=== PATIENT | male | born 2000 | race Caucasian/White ===

== ENCOUNTER 2024-03-21 08:25 | Outpatient (AMB) | payer BC, SELFPAY ==
--- NOTE | 2024-03-21 08:43 | A.OFFPC_ITS ---
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 Manager Desktop Required: No Allergies No Known Allergies Allergy (Verified 03/21/24 09:03) Medication List - Last Reconciled 03/21/24 by Eve Arzate CNP No Known Home Meds Tobacco use date assessed: 03/21/24 Dental Screening Dental Screen Date: 03/21/24 Did you have a dental visit in the last 12 months?: No Did you have a dental problem in the last 6 months where you did not have access to dental care?: No Was dental information given to patient?: Patient declined HPI HPI Comments History of Present Illness Details New patient Prior PCP:?[place], [place] Last office visit/CPE: About 2 years Acute issue(s): None Not on prescription medication He admits to making healthy dietary changes and sleeping well. He does not exercise routinely PMHx: None SurgHx: None FHx: None SocHx: Nonsmoker. Drinks 4 beers or couple of shots 2 times weekly. 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 1. Little interest or pleasure in doing things: not at all 2. Feeling down, depressed, or hopeless: not at all 3. Trouble falling or staying asleep, or sleeping too much: several days 4. Feeling tired or having little energy: several days 5. Poor appetite or overeating: not at all 6. Feeling bad about yourself - or that you are a failure or have let yourself or your family down: not at all 7. Trouble concentrating on things, such as reading the newspaper or watching television: not at all 8. Moving or speaking so slowly that other people could have noticed. Or the opposite - being so fidgety or restless that you have been moving around a lot more than usual: not at all 9. Thoughts that you would be better off or of hurting yourself in some way: not at all Total score: 2 Depression Screening Interpretation: Negative Depression Screening Done: Yes 92122 - PHQ-9 Billing: Yes Source: Developed by Drs. Ed Singh, Bebe Denny, Neri Mcginnis and colleagues, with an educational jemima from [employer]. Thrive Questionnaire Date Thrive assessed: 03/21/24 I am a: Patient What is your living situation today?: I have a steady place to live Within the past 12 months, did the food you bought not last and you didn't have the money to get more?: Never true Within the past 12 months, did you worry whether your food would run out before you got money to buy more?: Never true Do you have trouble paying for medicines?: No Do you have trouble getting transportation to medical appointments?: No Do you have trouble paying your heating and electricity bill?: No Do you have trouble taking care of your child, family member or friend?: No Do you have trouble with day-to-day activities such as bathing, preparing meals, shopping, managing finances, etc.?: No Are you currently unemployed and looking for a job?: No Are you interested in more education?: Yes Please select the resources that you would like help with: Education Currently or been in a relationship where the following occur: No concerns reported THRIVE Score: 0 AUDIT C Alcohol Use Questionnaire (AUDIT-C) 1. How often do you have a drink containing alcohol?: 2-3 times a week 2. How many drinks containing alcohol do you have on a typical day when you are drinking?: 3 or 4 3. How often do you have six or more drinks on one occasion?: Weekly Total Score: 7 Score Reviewed/Action Taken: Yes CLARE-7 AMB Questionnaire CLARE-7 Date CLARE - 7 assessed: 03/21/24 Feeling nervous, anxious, or on edge: 0 = Not at all Not being able to stop or control worryin = Not at all Worrying too much about different things: 0 = Not at all Trouble relaxin = Not at all Being so restless that it is hard to sit still: 0 = Not at all Becoming easily annoyed or irritable: 0 = Not at all Feeling afraid as if something awful might happen: 0 = Not at all Total CLARE-7 score (0-4 normal; 5-9 mild; 10-14 moderate; 15-21 severe): 0 Source: Developed by Drs. Ed Singh, Bebe Denny, Neri Mcginnis and colleagues, with an educational jemima from [employer]. CLARE-7 Assessment Billing CLARE-7 Assessment Tool: CLARE-7 Assessment 13424 Review of Systems Const Details: Denies chills, Denies fatigue, Denies fever(s), Denies headache(s) and Denies weakness HEENT Denies change in vision, Denies dizziness, Denies headache(s), Denies hearing loss, Denies nasal congestion, Denies sinus pain, Denies sinus pressure and Denies sore throat Card Denies chest pain, Denies lightheadedness, Denies dyspnea and Denies other (palpitations) Resp Denies cough, Denies dyspnea and Denies wheezing GI Denies abdominal pain, Denies melena, Denies hematochezia, Denies change in bowel habits, Denies dyspepsia and Denies nausea Denies hematuria and Denies dysuria Musc Denies abnormal gait, Denies myalgias, Denies arthralgias, Denies numbness and Denies tingling Skin/Breast Denies rash, Denies unusual bruising and Denies wounds Neuro Denies abnormal gait, Denies dizziness, Denies headache(s), Denies memory loss, Denies numbness, Denies Sensory deficit (Neuro), Denies tingling and Denies weakness Psych Denies anxiety, Denies depression and Denies memory loss Endo Denies cold intolerance, Denies fatigue, Denies heat intolerance, Denies polydipsia and Denies polyuria Willis/Lymph Denies easy bleeding and Denies easy bruising Aller/Immun Denies wheezing Physical exam (Primary Care) Vital Signs: Last Vital Signs Temp 98.3 F 03/21/24 08:50 Pulse 72 03/21/24 08:50 Resp 16 03/21/24 08:50 BP 130/74 03/21/24 08:50 Pulse Ox 98 03/21/24 08:50 Oxygen Delivery Method Room Air 03/21/24 08:50 BMI result Body Mass Index 35.9 Tobacco/Smoking Status: Tobacco use Status Tobacco use date assessed 03/21/24 03/21/24 08:49 Patient Tobacco Use Status Never used Tobacco 03/21/24 08:49 e-Cigarette/Vaping Use Never Used 03/21/24 08:49 PHQ-9: PHQ-9 Score PHQ-9: Total score 2 03/21/24 09:29 Depression Screening Interpretation: Negative Thrive Assessment: Date of Thrive Assessment Date Thrive assessed 03/21/24 03/21/24 08:54 Currently or been in a relationship where the following occur: No concerns reported Const Other: General: no acute distress, well developed, alert and awake Nutritional Appearance: well nourished Orientation/consciousness: patient oriented x3 HENMT Head: Yes normocephalic and Yes atraumatic Ears: hearing grossly normal bilaterally and TM's normal bilaterally General nose exam: Normal external nose present and Normal nares present Mouth: Normal oral and palatal mucosa present and moist mucous membranes Teeth and gingiva: dentition normal Throat: Yes oropharynx normal Eyes Pupils: Equal, round and reactive pupils present and Pupil accommodation reflex normal EOM: EOMs intact bilaterally Neck Neck: Yes normal visual inspection, Yes no lymphadenopathy and Yes trachea midline Thyroid: Thyroid normal Carotids: no bruits Lymphatic: no lymphadenopathy noted Chest Chest palpation & inspection: normal inspection of the chest Resp Effort & Inspection: normal respiratory effort Auscultation: clear to auscultation bilaterally Cardio Rate: regular rate Rhythm: regular rhythm Heart sounds: S1 normal heart sound present, S2 normal heart sound present, no gallops, no murmurs and no rubs Bruits: no abdominal aortic bruits and no carotid bruits GI Palpation (GI): No Abdominal aortic bruit present, Soft to palpation, nontender, No hepatosplenomegaly present and No Rebound tenderness present Auscultation: normal bowel sounds General: Yes no CVA tenderness Back/Spine/Pelvis Back: no CVA tenderness Cervical Spine: cervical ROM normal and No Cervical spine tenderness Thoracic/Lumbar Spine: thoraco-lumbar ROM normal, No pain with thoraco-lumbar ROM, No thoracic spinal tenderness and No lumbar spinal tenderness Skin General: warm and dry. Normal skin color. Normal skin turgor Lesions: no lesions Rashes: no rashes Trauma: no lacerations or abrasions Wounds: no wounds Nails: normal Neuro General: patient oriented x3, gait normal and CN's II-XI intact bilaterally Cranial nerves: Yes Equal, round and reactive pupils present Cognition (Neuro): normal cognition Gait exam (Neuro): Normal gait present Motor exam (neuro): 5/5 motor strength present throughout Sensory Exam: No Sensory deficit (Neuro) Deep tendon reflexes (DTR's): Right patellar reflex intensity grade: 2+ and Left patellar reflex intensity grade: 2+ Extrem General: Yes normal to inspection, No edema and No calf tenderness Psych Appearance: grossly normal Affect: normal affect Attitude: cooperative Thought process: Normal thought process present Immunizations Boostrix Tdap 2.5 Lf unit-8 mcg-5 Lf/0.5 mL intramuscular syringe Performing Provider: Eve Arzate CNP Performing Location: [facility] Administered by: Iris Brown RN on 03/21/24 09:29 Dose Route Admin Location Dispensed Lot Number Expiration Date NDC Medical Record Specialist 0.5 mL IM Left Deltoid 0.5 mL [id number] 04/13/26 [id number] Disconnect VIS Given Date VIS Provided VIS Publication Date 03/21/24 Single Vaccine 21 Eligibility Eligibility Date Funding Source Not [facility] Eligible 03/21/24 Private Assessment and Plan Assessment & Plan (1) Normal physical examination, routine: Code(s): Z00.00 - Encounter for general adult medical examination without abnormal findings Plan: No significant physical restrictions or limitations noted Continue current treatment regimen Healthy diet and routine exercise encouraged Encouraged to establish with a dentist for routine dental care Advised to limit alcohol consumption 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 Advised to get lab work done and follow-up for telehealth visit in 2-3 weeks for labs review Return with symptoms or concerns Verbalized understanding and agreed with the treatment plan (2) Obesity (BMI 30-39.9): Code(s): E66.9 - Obesity, unspecified Plan: He currently weighs 250 lb, BMI is 35.9 He admits to making healthy dietary changes but has not been exercising routinely Declines with management with dietitian referral at this time Healthy diet and routine exercise encouraged He may inform his PCP as needed for dietitian or weight management referral Verbalized understanding and agreed with the plan (3) Eye exam, routine: Code(s): Z01.00 - Encounter for examination of eyes and vision without abnormal findings Plan: His last eye exam was several years ago Referred to Ophthalmology for routine eye exam (4) Vaccine for tetanus toxoid: Code(s): Z23 - Encounter for immunization Plan: His last tetanus vaccine was in 2013 Tdap vaccine administered administered today by our nurse (5) Encounter for counseling regarding immunization: Code(s): Z71.85 - Encounter for immunization safety counseling Plan: Hep B, MMR, and varicella titers ordered as requested for school (6) Laboratory tests ordered as part of a complete physical exam (CPE): Code(s): Z00. - Encounter for general adult medical examination without abnormal findings Plan: Fasting labs ordered as part of a complete physical exam. Advised to fast for at least 10 hours before getting labs drawn. May drink water Verbalized understanding and agreed with treatment plan. Orders: Orders TDaP Immunization Today Z23 - Encounter for immunization TSH reflex Free T4 Today Z00. - Encounter for general adult medical examination without abnormal findings Lipid Panel Today Z00. - Encounter for general adult medical examination without abnormal findings Hepatitis A,B,C Profile Today Z71.85 - Encounter for immunization safety counseling MMR IgG Measles Mumps Rubella Today Z71.85 - Encounter for immunization safety counseling Complete Blood Count Auto Diff Today Z00.00 - Encounter for general adult medical examination without abnormal findings Comprehensive [place]. Panel Fast Today Z00.00 - Encounter for general adult medical examination without abnormal findings UA CC w/rflx Micro + Cult Today Z00.00 - Encounter for general adult medical examination without abnormal findings Varicella IgG Antibody Today Z71.85 - Encounter for immunization safety counseling Referrals Ophthalmology Referral Z01. - Encounter for examination of eyes and vision without abnormal findings Coding Level of Care Code New Pt Prev Care 18-39yr(99952 Diagnoses Normal physical examination, routine Z00. Obesity (BMI 30-39.9) E66.9 Eye exam, routine Z01. Vaccine for tetanus toxoid Z23 Encounter for counseling regarding immunization Z71.85 Laboratory tests ordered as part of a complete physical exam (CPE) Z00.00 Additional Codes CLARE-7 Assessment Billing - CLARE-7 Assessment Tool: CLARE-7 Assessment 68284 ([id number])
[2024-03-21 08:50] VITALS: BP 130/74; PULSE 72; RESP 16; TEMP 36.8; O2SAT 98; BMI 35.9
== END 2024-03-21 09:27 | disposition home or self-care (01) ==
PROVIDERS: Visit Provider Nurse Practitioner Family
DX: Z00.00 Encounter for general adult medical examination without abnormal findings (principal); E66.9 Obesity, unspecified; Z23 Encounter for immunization; Z71.85 Encounter for immunization safety counseling

== ENCOUNTER → 2024-03-21 08:25 | Outpatient (BNVA) | payer BC, SELFPAY | PROVIDERS: Visit Provider Nurse Practitioner Family | DX: Z00.00 Encounter for general adult medical examination without abnormal findings (principal); Z01.00 Encounter for examination of eyes and vision without abnormal findings; E66.9 Obesity, unspecified; Z68.35 Body mass index [BMI] 35.0-35.9, adult; Z23 Encounter for immunization; Z71.85 Encounter for immunization safety counseling | CPT/HCPCS: 90471; 90715; 96127 ==

== ENCOUNTER 2024-03-21 09:47 | Outpatient (REF) | payer BC, SELFPAY ==
[2024-03-21 11:36] LABS: Appearance Urine Clear; Color Urine Yellow; Glucose Urine UA Negative (Negative); Leukocyte Esterase Urine Negative (Negative); Nitrite Urine Negative (Negative); PH 6.5 (5.0-9.0); Urine Blood Negative (Negative); Urine Ketones Negative (Negative); Urine Protein Negative (Neg-Trace)
[2024-03-21 11:44] LABS: MANUAL DIFF FLAG NO
[2024-03-21 11:52] LABS: Basophils Absolute Auto 0.1 X10*3/uL (0.0-0.2); Basophils Percent Auto 0.9 % (0-2); Eosinophils Absolute Auto 0.1 X10*3/uL (0.0-0.4); Eosinophils Percent Auto 2.2 % (0-4); Hematocrit 41.3 % (42.0-52.0); Hemoglobin 14.2 g/dl (14.0-18.0); Imm Gran Abs Auto 0.03 X10*3/uL (0.00-0.03); Imm Gran Pct Auto 0.5 % (0.0-0.4); Lymphocytes Absolute Auto 1.3 X10*3/uL (1.2-4.9); Mean Corpuscular HGB Conc 34.4 g/dl (31.0-36.0); Mean Corpuscular Hemoglobin 27.9 pg (27.0-33.0); Mean Corpuscular Volume 81.1 fL (80.0-98.0); Mean Platelet Volume 9.9 fL (9.4-12.4); Monocytes Absolute Auto 0.5 X10*3/uL (0.1-1.2); Monocytes Percent Auto 7.4 % (2-11); Neutrophils Absolute Auto 4.5 x10*3/uL (2.0-8.3); Platelet Count 210 X10*3/uL (160-400); Red Blood Count 5.09 X10*6/uL (4.60-5.80); Red Cell Distribution Width 12.5 % (11.0-16.0); White Blood Count 6.5 X10*3/uL (4.8-10.8)
[2024-03-21 12:31] LABS: Alanine Aminotransferase 27 U/L (0-40); Albumin Level 4.4 g/dL (3.5-5.0); Alkaline Phosphatase 77 U/L (39-117); Anion Gap 10 (12-20); Aspartate Amino Transferase 18 U/L (5-37); Bilirubin Total 0.6 mg/dL (0.0-1.0); Blood Urea Nitrogen 13 mg/dL (9-16); Calcium 10.1 mg/dL (8.4-10.2); Carbon Dioxide 28 mmol/L (22-29); Chloride 104 mmol/L (96-108); Cholesterol 180 mg/dL (<200); Estimated Glomerular Filt Rate > 60; Glucose Fasting 96 mg/dL (60-99); HDL Cholesterol 40 mg/dL (>40); LDL Cholesterol Calculated 114 mg/dL (<100); Potassium 4.2 mmol/L (3.3-5.1); Sodium 138 mmol/L (135-145); Total Protein 7.4 g/dL (6.5-8.0); Triglycerides 132 mg/dL (<150)
[2024-03-21 13:15] LABS: HBS Num1 0.67 mIU/mL (0-7.99); HBc Num1 0.33 S/CO (0.00-0.79); HBsAGNum1 0.31 S/CO (0.00-0.99); Hepatitis A Antibody IgM 0.14 Index (0-0.79); Hepatitis B Core Antibody Nonreactive (Nonreactive); Hepatitis B Surface Antigen Negative (Negative); ~HepC Num1 0.19 S/CO (0.00-0.79); ~Hepatitis A Antibody IgM Nonreactive (Nonreactive); ~Hepatitis B Surface Antibody NONREACTIVE (Nonreactive); ~Hepatitis C Antibody Nonreactive (Nonreactive)
[2024-03-22 22:23] LABS: Varicella IgG Antibody 1.02 S/CO
[2024-03-22 23:03] LABS: Rubella IgG Antibody 3.76 Index
== END 2024-03-21 09:48 | disposition home or self-care (01) ==
LOC: HO.WFDLDS 09:47
PROVIDERS: Visit Provider Nurse Practitioner Family
DX: Z00.00 Encounter for general adult medical examination without abnormal findings (principal); Z71.85 Encounter for immunization safety counseling
CPT/HCPCS: 36415; 80053; 80061; 81003; 84443; 85025; 86704; 86706; 86709; 86735; 86762; 86765; 86787; 86803; 87340

== ENCOUNTER 2024-03-30 13:59 | Outpatient (AMB) | payer BC, SELFPAY ==
--- NOTE | 2024-03-30 14:27 | AM.OFFVISNUR ---
Intake Visit Reasons: HEP B Allergies No Known Allergies Allergy (Verified 03/21/24 09:03) Assessment & Plan Assessment & Plan Orders: Orders Hepatitis B Adult Immunization Today Z23 - Encounter for immunization Medications: New Engerix-B (PF) (hepatitis B virus vacc.rec(PF)) 1 mL IM ONCE 1 mL 0RF NS Z23 - Encounter for immunization
== END 2024-03-30 14:36 | disposition home or self-care (01) ==
PROVIDERS: Visit Provider Nurse Practitioner Family
DX: Z23 Encounter for immunization (principal)

== ENCOUNTER → 2024-03-30 13:59 | Outpatient (BNVA) | payer BC, SELFPAY | PROVIDERS: Visit Provider Nurse Practitioner Family | DX: Z23 Encounter for immunization (principal) | CPT/HCPCS: 90471; 90746 ==

== ENCOUNTER → 2024-04-11 14:47 | Outpatient (BNVA) | payer BC, SELFPAY | PROVIDERS: Visit Provider Nurse Practitioner Family ==

== ENCOUNTER 2024-04-29 12:22 | Outpatient (AMB) | payer BC, SELFPAY ==
--- NOTE | 2024-04-29 12:38 | AM.OFFVISNUR ---
Intake Visit Reasons: HEP B second dose Allergies No Known Allergies Allergy (Verified 04/11/24 14:43) Assessment & Plan Assessment & Plan Orders: Orders Hepatitis B Adult Immunization Today Z23 - Encounter for immunization Medications: New Engerix-B (PF) (hepatitis B virus vacc.rec(PF)) 1 mL IM ONCE 1 mL 0RF NS Z23 - Encounter for immunization
== END 2024-04-29 12:45 | disposition home or self-care (01) ==
PROVIDERS: Visit Provider Nurse Practitioner Family
DX: Z23 Encounter for immunization (principal)

== ENCOUNTER → 2024-04-29 12:22 | Outpatient (BNVA) | payer BC, SELFPAY | PROVIDERS: Visit Provider Nurse Practitioner Family | DX: Z23 Encounter for immunization (principal) | CPT/HCPCS: 90471; 90746 ==

== ENCOUNTER 2024-08-20 13:40 | Emergency (ER) | payer BC, SELFPAY ==
--- NOTE | ~2024-08-20 | CT_ITS ---
CLINICAL HISTORY: fall, pain CT cervical spine without contrast Comparison: None Findings: Normal limited view of the intracranial contents. Soft tissues of the neck are normal. Lung apices are clear. Normal vertebral body alignment. No fractures or dislocations. No epidural hematoma. Facet joints and pedicles are unremarkable. Transverse processes and spinous processes are normal. Impression: Degenerative changes with no signs of acute skeletal trauma. This document has been electronically signed by: Jose Hoyt MD on 08/20/2024 15:02:39
--- NOTE | ~2024-08-20 | CT_ITS ---
CLINICAL HISTORY: fall, pain CT Head Without Contrast: Comparison: None Findings: Cortical Sulci are symmetric Basal ganglia are unremarkable No shift in midline structures No intraparenchymal bleeding or abnormal extra axial blood fluid collections Normal pituitary size There is fluid density in the sphenoid sinuses and mucosal thickening of ethmoid sinuses. Unremarkable orbital structures No depressed fractures Impression: Unremarkable CT of the head, no signs of acute trauma This document has been electronically signed by: Jose Hoyt MD on 08/20/2024 15:51:44
[2024-08-20 14:15] VITALS: BP 126/89; PULSE 71; RESP 18; TEMP 36.2; O2SAT 99; BMI 34.4
--- NOTE | 2024-08-20 14:16 | ED_ITS ---
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 house and slipped falling backwards and smashing the back of his head into the sidewalk, he was briefly dazed and he did have a bump on the back of his head which is now gone, and over 6 eating days he continues to have the symptoms described above He denies any confusion or loss of balance, he says there was no complete loss of consciousness there is no retrograde amnesia, no vomiting He says his neck hurt briefly last week but there is no neck pain or discomfort now and he is moving the neck normally he has no numbness weakness or tingling, no radiation of any pain, no changes to bowel or bladder No chest pain no rib pain no back pain no extremity pains Related Data Home Medications ?Medication ?Instructions ?Recorded ?Confirmed No Known Home Meds 03/21/24 03/21/24 Allergies Allergy/AdvReac Type Severity Reaction Status Date / Time No Known Allergies Allergy Verified 08/20/24 14:17 PMFSH Past Medical History Source: nursing notes reviewed Social History Social History Housing: House Patient Tobacco Use Status: Never used Tobacco e-Cigarette/Vaping Use: Never Used Advance Directives: No Advance Directives Information Provided: Yes Do you have a plan to hurt others: No Plan service: No Current occupational status: employed 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: No Hearing needs: No Vision needs: No Physical Exam ED Vital Signs: Vital Signs - 24 hr 08/20/24 14:15 Temperature 97.2 F Pulse Rate 71 Respiratory Rate 18 Blood Pressure 126/89 Pulse Oximetry 99 Oxygen Delivery Method Room Air BMI result Body Mass Index 34.4 General appearance is no acute distress The head was normocephalic atraumatic, no swelling or hematoma palpated no raccoon eyes no cabrera signs, the face no tenderness over any bone in the face The neck had no posterior tenderness, had a painless full range of motion Chest no chest wall tenderness The abdomen was soft and nontender The extremities are full range of motion x4 Neuro gait and balance are normal, interaction comprehension and expression are all normal, cranial nerves 2-12 intact as tested, motor is 5/5 x4, sensation is intact and symmetrical, cerebellar exam patient can walk heel to toe and [id number] was normal Course Course Course Narrative: RME performed by Peggy Chan PA-C. Patient is a 23 year old assigned male at presenting to the emergency department with a headache and vision changes. 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 Patient states that he has had a headache ever since with his vision randomly unfocusing. Patient states that he was seen at an urgent care who recommended a CT head. Detailed physical exam and review of systems are deferred to the primary special educator. Imaging ordered. Patient placed back in the waiting room pending room availability and results. Patient with symptoms of dizziness described as intermittent lightheadedness, vision changes described as intermittent blurring, intermittent headache and intermittent nausea without vomiting who had negative head CT and C-spine CT Symptoms are likely concussion, he has had several concussions in the past from playing football and he says feels the same He is discharged [facility] and given light duty for 5 days of work Discharge Plan Discharge Clinical Impression: Concussion Patient Disposition: Home, Self-Care Additional Instructions: Scans of head and neck did not show any bleed, broken bone or any worrisome or acute findings Return any time any worse condition or any concerns Your symptoms are very likely a concussion from when you fell backwards on the sidewalk hitting her head over a week ago and continued to feel lightheaded headache mild nausea and some dizziness, these are classic concussion symptoms They usually resolve on their own but not predictable how long hopefully a few more days and your better Follow with [facility] comp doctor for further evaluation Prescriptions: No Action No Known Home Meds Stand Alone Forms: Work/School Release Print Language: Yoruba
[2024-08-20 16:07] VITALS: BP 126/89; PULSE 71; RESP 18; TEMP 36.2; O2SAT 99
== END 2024-08-20 16:08 | disposition home or self-care (01) ==
PROVIDERS: Emergency Provider Emergency Medicine
DX: S06.0X0A Concussion without loss of consciousness, initial encounter (principal); H53.8 Other visual disturbances; R42 Dizziness and giddiness; M54.2 Cervicalgia; R51.9 Headache, unspecified; W01.0XXA Fall on same level from slipping, tripping and stumbling without subsequent striking against object, initial encounter; Y93.9 Activity, unspecified; Y92.9 Unspecified place or not applicable; Y99.8 Other external cause status
CPT/HCPCS: 70450; 72125; 99282; 99284

== ENCOUNTER → 2024-08-20 14:18 | Outpatient (BNV) | payer BC, SELFPAY | PROVIDERS: Emergency Provider Emergency Medicine; Visit Provider Radiology Diagnostic Radiology | DX: S00.93XA Contusion of unspecified part of head, initial encounter (principal); W19.XXXA Unspecified fall, initial encounter | CPT/HCPCS: 70450; 72125 ==

== ENCOUNTER 2024-09-30 12:18 | Outpatient (AMB) | payer BC, SELFPAY ==
--- NOTE | 2024-09-30 12:37 | AM.OFFVISNUR ---
Intake Visit Reasons: Hep B shot Allergies No Known Allergies Allergy (Verified 08/20/24 14:17) Immunizations Recombivax HB (PF) 10 mcg/mL intramuscular suspension Performing Provider: Eve Arzate CNP Performing Location: [facility] Administered by: Iris Brown RN on 09/30/24 12:37 Dose Route Admin Location Dispensed Lot Number Expiration Date NDC Adaptive Physical Education Specialist 1 mL IM Left Deltoid 1.0 mL [id number] 02/26/26 [id number] Load DynamiX VIS Given Date VIS Provided VIS Publication Date 09/30/24 Single Vaccine 22 Eligibility Eligibility Date Funding Source Not [facility] Eligible 09/30/24 Private Assessment & Plan Assessment & Plan Orders: Orders Hepatitis B Adult Immunization Today Z23 - Encounter for immunization Medications: New Recombivax HB (PF) (hepatitis B virus vacc.rec(PF)) 1.0 mL IM ONCE 1 mL 0RF NS Z23 - Encounter for immunization Coding
== END 2024-09-30 15:38 | disposition home or self-care (01) ==
LOC: HO.HMCFM 12:19
PROVIDERS: Visit Provider Nurse Practitioner Family
DX: Z23 Encounter for immunization (principal)

== ENCOUNTER → 2024-09-30 12:18 | Outpatient (BNVA) | payer BC, SELFPAY | PROVIDERS: Visit Provider Nurse Practitioner Family | DX: Z23 Encounter for immunization (principal) | CPT/HCPCS: 90471; 90746 ==

== ENCOUNTER 2024-11-21 11:41 | Outpatient (REF) | payer BC, SELFPAY ==
[2024-11-22 04:00] LABS: HBc Num1 0.09 S/CO (0.00-0.79); HBsAGNum1 0.41 S/CO (0.00-0.99); Hepatitis B Core Antibody Nonreactive (Nonreactive); Hepatitis B Surface Antigen Negative (Negative); ~HepC Num1 0.13 S/CO (0.00-0.79); ~Hepatitis B Surface Antibody REACTIVE (Nonreactive); ~Hepatitis C Antibody Nonreactive (Nonreactive)
== END 2024-11-21 11:42 | disposition home or self-care (01) ==
LOC: HO.HMGCLDS 11:41
PROVIDERS: PCP Nurse Practitioner Family; Visit Provider Nurse Practitioner Family
DX: Z71.85 Encounter for immunization safety counseling (principal)
CPT/HCPCS: 36415; 86704; 86706; 86803; 87340

== ENCOUNTER 2025-04-28 08:03 | Outpatient (REF) | payer BC, SELFPAY ==
[2025-04-28 11:31] LABS: MANUAL DIFF FLAG NO
[2025-04-28 11:36] LABS: Hematocrit 41.9 % (42.0-52.0); Hemoglobin 13.8 g/dl (14.0-18.0); Imm Gran Abs Auto 0.01 X10*3/uL (0.00-0.03); Imm Gran Pct Auto 0.2 % (0.0-0.4); Lymphocytes Absolute Auto 1.6 X10*3/uL (1.2-4.9); Mean Corpuscular HGB Conc 32.9 g/dl (31.0-36.0); Mean Corpuscular Hemoglobin 27.5 pg (27.0-33.0); Mean Corpuscular Volume 83.5 fL (80.0-98.0); NRBC Abs Auto 0.000 X10*3/uL (0.0-0.012); NRBC Pct Auto 0.0 /100WBC (0.0-0.2); Platelet Count 229 X10*3/uL (160-400); Red Blood Count 5.02 X10*6/uL (4.60-5.80); White Blood Count 5.7 X10*3/uL (4.8-10.8)
[2025-04-28 12:20] LABS: Alanine Aminotransferase 26 U/L (0-40); Albumin Level 4.6 g/dL (3.5-5.0); Alkaline Phosphatase 63 U/L (39-117); Anion Gap 7 (12-20); Aspartate Amino Transferase 26 U/L (5-37); Blood Urea Nitrogen 10 mg/dL (9-16); Calcium 9.2 mg/dL (8.4-10.2); Carbon Dioxide 29 mmol/L (22-29); Chloride 109 mmol/L (96-108); Cholesterol 148 mg/dL (<200); Estimated Glomerular Filt Rate > 60; HDL Cholesterol 34 mg/dL (>40); Potassium 4.2 mmol/L (3.3-5.1); Sodium 141 mmol/L (135-145); Total Protein 7.3 g/dL (6.5-8.0); Triglycerides 62 mg/dL (<150)
[2025-04-28 12:41] LABS: Appearance Urine Clear; Glucose Urine UA Negative (Negative); PH 6.0 (5.0-9.0); Specific Gravity - Urine 1.015 (1.005-1.025)
[2025-04-28 13:00] LABS: Microalbum/Creatinine Ratio Ur 5.2 ug/mg cr (<30)
== END 2025-04-28 08:04 | disposition home or self-care (01) ==
LOC: HO.WFDLDS 08:03
PROVIDERS: PCP Nurse Practitioner Family; Visit Provider Nurse Practitioner Family
DX: Z00.00 Encounter for general adult medical examination without abnormal findings (principal); G47.9 Sleep disorder, unspecified; E66.9 Obesity, unspecified; Z68.34 Body mass index [BMI] 34.0-34.9, adult
CPT/HCPCS: 36415; 80053; 80061; 81003; 82043; 82306; 82570; 84443; 85025; 96127

== ENCOUNTER 2025-04-28 08:03 | Outpatient (AMB) | payer BC, SELFPAY ==
--- NOTE | 2025-04-28 08:06 | MHC.PC.OV ---
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 He is not on prescription medication. Acute issue(s) - None Past Medical History - Dyslipidemia Social History - Nonsmoker. Does not vape. Drinks 2-4 beers four times monthly. Denies recreational drug use - Has been making healthy dietary choices. Active but does not exercise. Difficulty falling asleep since he started school about a year ago, snores sometimes, never had a sleep study and declines referral for this - He is sexually active, in a monogamous relationship, and has no concern for STDs. Health maintenance - Last eye exam was several years ago. Referred to Ophthalmology - Last dental visit was in 08/2024 - Last Tdap was in 03/21/2024 - Has not been vaccinated for the flu this season; declines vaccination Specialists - None [facility], [facility] Medical History (Updated 04/28/25 @ 08:38 by Eve Arzate CNP) TBI (traumatic brain injury) Family History (Updated 04/28/25 @ 08:10 by NAHED Pemberton) Father Lung cancer Social History Housing: House Patient Tobacco Use Status: Never used Tobacco e-Cigarette/Vaping Use: Never Used Second Hand Smoke Exposure: No service: No Current occupational status: employed 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 1. Little interest or pleasure in doing things: not at all 2. Feeling down, depressed, or hopeless: not at all 3. Trouble falling or staying asleep, or sleeping too much: several days 4. Feeling tired or having little energy: several days 5. Poor appetite or overeating: not at all 6. Feeling bad about yourself - or that you are a failure or have let yourself or your family down: not at all 7. Trouble concentrating on things, such as reading the newspaper or watching television: not at all 8. Moving or speaking so slowly that other people could have noticed. Or the opposite - being so fidgety or restless that you have been moving around a lot more than usual: not at all 9. Thoughts that you would be better off or of hurting yourself in some way: not at all Total score: 2 Depression Screening Interpretation: Negative Depression Screening Done: Yes 08220 - PHQ-9 Billing: Yes Source: Developed by Drs. Ed Singh, Bebe Denny, Neri Mcginnis and colleagues, with an educational jemima from [employer]. Thrive Questionnaire Date Thrive assessed: 04/28/25 I am a: Patient What is your living situation today?: I have a steady place to live Within the past 12 months, did the food you bought not last and you didn't have the money to get more?: Never true Within the past 12 months, did you worry whether your food would run out before you got money to buy more?: Never true Do you have trouble paying for medicines?: No Do you have trouble getting transportation to medical appointments?: No Do you have trouble paying your heating and electricity bill?: No Do you have trouble taking care of your child, family member or friend?: No Do you have trouble with day-to-day activities such as bathing, preparing meals, shopping, managing finances, etc.?: No Are you currently unemployed and looking for a job?: No Are you interested in more education?: No Please select the resources that you would like help with: None Currently or been in a relationship where the following occur: No concerns reported THRIVE Score: 0 AUDIT C Alcohol Use Questionnaire (AUDIT-C) 1. How often do you have a drink containing alcohol?: 2-4 times a month 2. How many drinks containing alcohol do you have on a typical day when you are drinking?: 3 or 4 3. How often do you have six or more drinks on one occasion?: Monthly Total Score: 5 Score Reviewed/Action Taken: Yes CLARE-7 AMB Questionnaire CLARE-7 Date CLARE - 7 assessed: 04/28/25 Feeling nervous, anxious, or on edge: 0 = Not at all Not being able to stop or control worryin = Not at all Worrying too much about different things: 0 = Not at all Trouble relaxin = Not at all Being so restless that it is hard to sit still: 0 = Not at all Becoming easily annoyed or irritable: 0 = Not at all Feeling afraid as if something awful might happen: 0 = Not at all Total CLARE-7 score (0-4 normal; 5-9 mild; 10-14 moderate; 15-21 severe): 0 Source: Developed by Drs. Ed Singh, Bebe Denny, Neri Mcginnis and colleagues, with an educational jemima from [employer]. CLARE-7 Assessment Billing CLARE-7 Assessment Tool: CLARE-7 Assessment 14539 Review of Systems Const Details: Denies chills, Denies fatigue, Denies fever(s), Denies headache(s) and Denies weakness HEENT Denies change in vision, Denies dizziness, Denies headache(s), Denies hearing loss, Denies nasal congestion, Denies sinus pain, Denies sinus pressure and Denies sore throat Card Denies chest pain, Denies lightheadedness, Denies dyspnea and Denies other (palpitations) Resp Denies cough, Denies dyspnea and Denies wheezing GI Denies abdominal pain, Denies melena, Denies hematochezia, Denies change in bowel habits, Denies dyspepsia and Denies nausea Denies hematuria and Denies dysuria Musc Denies abnormal gait, Denies myalgias, Denies arthralgias, Denies numbness and Denies tingling Skin/Breast Denies rash, Denies unusual bruising and Denies wounds Neuro Denies abnormal gait, Denies dizziness, Denies headache(s), Denies memory loss, Denies numbness, Denies Sensory deficit (Neuro), Denies tingling and Denies weakness Psych Denies anxiety, Denies depression and Denies memory loss Endo Denies cold intolerance, Denies fatigue, Denies heat intolerance, Denies polydipsia and Denies polyuria Willis/Lymph Denies easy bleeding and Denies easy bruising Aller/Immun Denies wheezing Physical exam (Primary Care) Tobacco/Smoking Status: Tobacco use Status Tobacco use date assessed 03/21/24 04/11/24 14:44 Patient Tobacco Use Status Never used Tobacco 04/11/24 14:44 e-Cigarette/Vaping Use Never Used 04/11/24 14:44 Depression Screening Interpretation: Negative Thrive Assessment: Date of Thrive Assessment Date Thrive assessed 04/21/25 04/21/25 11:47 Currently or been in a relationship where the following occur: No concerns reported Const Other: General: no acute distress, well developed, alert and awake Nutritional Appearance: well nourished Orientation/consciousness: patient oriented x3 HENMT Head: Yes normocephalic and Yes atraumatic Ears: hearing grossly normal bilaterally and TM's normal bilaterally General nose exam: Normal external nose present and Normal nares present Mouth: Normal oral and palatal mucosa present and moist mucous membranes Teeth and gingiva: dentition normal Throat: Yes oropharynx normal Eyes Pupils: Equal, round and reactive pupils present and Pupil accommodation reflex normal EOM: EOMs intact bilaterally Neck Neck: Yes normal visual inspection, Yes no lymphadenopathy and Yes trachea midline Thyroid: Thyroid normal Carotids: no bruits Lymphatic: no lymphadenopathy noted Chest Chest palpation & inspection: normal inspection of the chest Resp Effort & Inspection: normal respiratory effort Auscultation: clear to auscultation bilaterally Cardio Rate: regular rate Rhythm: regular rhythm Heart sounds: S1 normal heart sound present, S2 normal heart sound present, no gallops, no murmurs and no rubs Bruits: no abdominal aortic bruits and no carotid bruits GI Palpation (GI): No Abdominal aortic bruit present, Soft to palpation, nontender, No hepatosplenomegaly present and No Rebound tenderness present Auscultation: normal bowel sounds General: Yes no CVA tenderness Back/Spine/Pelvis Back: no CVA tenderness Cervical Spine: cervical ROM normal and No Cervical spine tenderness Thoracic/Lumbar Spine: thoraco-lumbar ROM normal, No pain with thoraco-lumbar ROM, No thoracic spinal tenderness and No lumbar spinal tenderness Skin General: warm and dry. Normal skin color. Normal skin turgor Lesions: no lesions Rashes: no rashes Trauma: no lacerations or abrasions Wounds: no wounds Nails: normal Neuro General: patient oriented x3, gait normal and CN's II-XI intact bilaterally Cranial nerves: Yes Equal, round and reactive pupils present Cognition (Neuro): normal cognition Gait exam (Neuro): Normal gait present Motor exam (neuro): 5/5 motor strength present throughout Sensory Exam: No Sensory deficit (Neuro) Deep tendon reflexes (DTR's): Right patellar reflex intensity grade: 2+ and Left patellar reflex intensity grade: 2+ Extrem General: Yes normal to inspection, No edema and No calf tenderness Psych Appearance: grossly normal Affect: normal affect Attitude: cooperative Thought process: Normal thought process present Coding Level of Care Code Est Pt Level 3 (90595) Est Pt Prev Care 18-39y(53220) Diagnoses Normal physical examination, routine Z00.00 Sleep disturbance G47.9 Obesity (BMI 30-39.9) E66.9 Eye exam, routine Z01.00 Laboratory tests ordered as part of a complete physical exam (CPE) Z00.00 Additional Codes CLARE-7 Assessment Billing - CLARE-7 Assessment Tool: CLARE-7 Assessment 26321 ([id number]) PHQ-9 - 14561 - PHQ-9 Billing: Yes ([id number]) Assessment & Plan Assessment & Plan (1) Normal physical examination, routine: Code(s): Z00.00 - Encounter for general adult medical examination without abnormal findings Category: Medical Plan: No significant functional limitation noted. Healthy diet and routine exercise encouraged. Perform lab work and follow-up for a telehealth visit for labs review in 2-3 weeks. Return sooner with symptoms or concerns. Verbalized understanding and agreed with the plan. (2) Sleep disturbance: Code(s): G47.9 - Sleep disorder, unspecified Category: Medical Plan: Reports difficulty falling asleep since he started school about a year ago, snores sometimes, never had a sleep study and declines referral for this. Instructed on sleep hygiene. Follow-up as needed. Verbalized understanding and agreed with the plan. (3) Obesity (BMI 30-39.9): Code(s): E66.9 - Obesity, unspecified Category: Medical Plan: He currently weighs 239 lb, BMI is 34.3. He generally eat healthy. He is active but does not exercise. Declines referral to oven roaster/dietitian or weight management clinic. Healthy diet and routine exercise encouraged. Follow-up as needed. Verbalized understanding and agreed with the plan. (4) Eye exam, routine: Code(s): Z01.00 - Encounter for examination of eyes and vision without abnormal findings Category: Medical Plan: His last eye exam was several years ago. Referred to Ophthalmology. (5) Laboratory tests ordered as part of a complete physical exam (CPE): Code(s): Z00.00 - Encounter for general adult medical examination without abnormal findings Category: Medical Plan: Fasting labs ordered as part of a complete physical exam. Advised to fast for at least 10 hours before getting labs drawn. May drink water Verbalized understanding and agreed with treatment plan. Orders: Orders Complete Blood Count Auto Diff Today Z00.00 - Encounter for general adult medical examination without abnormal findings UA CC w/rflx Micro + Cult Today Z00.00 - Encounter for general adult medical examination without abnormal findings Comprehensive [place]. Panel Fast Today Z00.00 - Encounter for general adult medical examination without abnormal findings Lipid Panel Today Z00.00 - Encounter for general adult medical examination without abnormal findings Microalbumin, Random (w Creat) Today Z00.00 - Encounter for general adult medical examination without abnormal findings Vitamin D 25-OH Total Today Z00.00 - Encounter for general adult medical examination without abnormal findings TSH reflex Free T4 Today Z00.00 - Encounter for general adult medical examination without abnormal findings Referrals Ophthalmology Referral Z01.00 - Encounter for examination of eyes and vision without abnormal findings
[2025-04-28 08:11] VITALS: BP 125/60; PULSE 60; RESP 16; TEMP 36.4; O2SAT 98; BMI 34.3
== END 2025-04-28 08:35 | disposition home or self-care (01) ==
LOC: HO.HMCFM 08:04
PROVIDERS: PCP Nurse Practitioner Family; Visit Provider Nurse Practitioner Family
DX: Z00.00 Encounter for general adult medical examination without abnormal findings (principal); G47.9 Sleep disorder, unspecified; E66.9 Obesity, unspecified; Z68.34 Body mass index [BMI] 34.0-34.9, adult

== ENCOUNTER 2025-05-23 15:04 | Outpatient (AMB) | payer BC, SELFPAY ==
--- NOTE | 2025-05-23 14:41 | A.OFFPC_ITS ---
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 He offers no complaints and denies acute symptoms at this time. 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 dE Singh, Bebe Denny, Neri Mcginnis and colleagues, with an educational jemima from [employer]. Review of Systems Const Details: Denies chills, Denies fatigue, Denies fever(s), Denies headache(s) and Denies weakness Cardiac Denies chest pain, Denies claudication, Denies leg edema, Denies lightheadedness, Denies palpitations, Denies dyspnea, Denies dyspnea on exertion, Denies orthopnea and Denies other (Loss of consciousness) Resp Denies cough, Denies excessive phlegm production, Denies dyspnea, Denies dyspnea on exertion, Denies snoring and Denies wheezing Physical exam (Primary Care) Tobacco/Smoking Status: Tobacco use Status Tobacco use date assessed 04/28/25 05/23/25 14:42 Patient Tobacco Use Status Never used Tobacco 05/23/25 14:42 e-Cigarette/Vaping Use Never Used 05/23/25 14:42 Thrive Assessment: Date of Thrive Assessment Date Thrive assessed 04/28/25 05/23/25 14:42 Const Other: Patient is alert and oriented x4 Telehealth Telehealth Telehealth Platform: Telephone Location of provider rendering services: practice address Location of patient: address on file Patient Identification confirmed using: Name, : Yes Telehealth method: voice only Patient verbally consented to treatment: Yes Patient verbally consented to billing insurance company: Yes Patient informed of any privacy concerns related to visit: Yes Coding Level of Care Code Tele Est Pt Level 3 (10245) Diagnoses Hypercholesterolemia E78.00 Time Spent (min) 10 Assessment & Plan Assessment & Plan (1) Hypercholesterolemia: Code(s): E78.00 - Pure hypercholesterolemia, unspecified Category: Medical Plan: Recent total cholesterol is slightly elevated, 102, HDL is slightly low, 34. Advised to limit foods high in saturated fat and avoid foods high in trans fat. Routine exercise encouraged. Will monitor lipid panel level annually or if clinically indicated. Follow-up for transfer of care with a new PCP within the practice in 2-3 months. Return sooner with symptoms or concerns. Verbalized understanding and agreed with the plan.
== END 2025-05-23 15:36 | disposition home or self-care (01) ==
LOC: HO.HMCFM 15:04
PROVIDERS: PCP Nurse Practitioner Family; Visit Provider Nurse Practitioner Family
DX: E78.00 Pure hypercholesterolemia, unspecified (principal)